=== PATIENT | female | born 1945 | race Caucasian/White ===

== ENCOUNTER 2018-11-28 18:08 | Emergency (ER) | payer OTHER ==
[~2018-11-28] VITALS: Ht 167.6 cm; Wt 122.5 kg
[~2018-11-28 18:08] MED LIST: ASPI81CH43; ATEN-60; GLIP-115; INSULIN 70/30; LANS15CA21; LORA-205; LOVA20TA4; MAX7550T; NITR0.4S31
[2018-11-28] MEDS ORDERED: ASPirin 81 mg TAB PO ONE (18:45)
[2018-11-28 19:42] LABS: Basophils # (auto) 0.1 uL; Basophils % (auto) 1.4 % (0.0-2.0); Eosinophils # (auto) 0.1 uL; Eosinophils % (auto) 1.8 % (0.0-7.0); Hemoglobin 13.4 g/dL (12.2-16.2); Lymphocytes # (auto) 1.4 uL; Lymphocytes % (auto) 21.1 % (10.0-50.0); Mean Corpuscular Hgb Conc. 32.8 g/dL (32.0-36.0); Mean Corpuscular Volume 85.5 fL (80.0-100.0); Monocytes # (auto) 0.4 uL; Monocytes % (auto) 6.6 % (0.0-12.0); Neutrophils # (auto) 4.7 uL; Neutrophils % (auto) 69.1 % (37.0-80.0); Nucleated Red Blood Cells % 0.1 %; Platelet Count (auto) 243 10^3/uL (140-450); Red Blood Cells 4.79 10^6/uL (4.0-5.20); Red Cell Distribution Width 15.3 % (11.8-14.3); White Blood Cell 6.7 10^3/uL (4.4-10.8)
[2018-11-28 19:55] LABS: Albumin 3.6 g/dL (3.4-5.0); Amylase 9 U/L (25-115); Anion Gap 8 (5-15); Blood Urea Nitrogen 18 mg/dL (7-18); Calcium 8.6 mg/dL (8.5-10.1); Carbon Dioxide 29 mmol/L (21-32); Chloride 98 mmol/L (98-107); Glucose 208 mg/dL (74-106); Lipase 55 U/L (73-393); Magnesium 2.3 mg/dL (1.6-2.6); Potassium 3.8 mmol/L (3.5-5.1); Sodium 135 mmol/L (136-145)
[2018-11-28 19:57] LABS: INR 0.98 (0.9-1.15); Partial Thromboplastin Time 25.7 sec (23.78-33.04); Prothrombin Time 10.5 sec (9.27-12.13)
[2018-11-28 19:58] LABS: Alanine Aminotransferase 21 U/L (13-56); Alkaline Phosphatase 83 U/L (45-117); Aspartate Aminotransferase 14 U/L (15-37); BUN/Creatinine Ratio 19.8; Bilirubin, Total 0.7 mg/dL (0.2-1.0); GFR African American 78 mL/min; GFR Non-African American 65 mL/min; Total Protein 7.4 g/dL (6.4-8.2)
[2018-11-29 00:37] VITALS: BP 150/66
== END 2018-11-29 01:40 | disposition home or self-care (01) ==
LOC: EDBD 18:08 → ER 18:12
DX: R07.89 Other chest pain (principal); F41.9 Anxiety disorder, unspecified; I48.91 Unspecified atrial fibrillation; J44.9 Chronic obstructive pulmonary disease, unspecified; E11.9 Type 2 diabetes mellitus without complications; I10 Essential (primary) hypertension; I25.2 Old myocardial infarction; E78.5 Hyperlipidemia, unspecified; Z90.49 Acquired absence of other specified parts of digestive tract; Z98.51 Tubal ligation status; Z95.1 Presence of aortocoronary bypass graft; Z88.1 Allergy status to other antibiotic agents
CPT/HCPCS: 36415; 70450; 71045; 80053; 82010; 82150; 82962; 83605; 83690; 83735; 83880; 84443; 84484; 85025; 85379; 85610; 85730; 93005; 94761